=== PATIENT | male | born 1955 | race Caucasian/White ===

== ENCOUNTER 2021-01-21 07:08 | Inpatient (IN) | payer MEDICARE, SELFPAY ==
[~2021-01-21] VITALS: Ht 170.2 cm; Wt 71.0 kg
[2021-01-21] MEDS ORDERED: LORazepam 2 MG/ML, 1ML ONE (07:17)
[2021-01-21] MEDS ORDERED: ASPIRIN 81 MG TABLET CHEW ONE (07:21)
[2021-01-21] MEDS ORDERED: NITROGLYCERIN/D5W PMX 250 ML ONE (07:26)
[2021-01-21] MEDS ORDERED: SODIUM CHLORIDE FLUSH 10ML SYR IVF ONE (07:30)
[2021-01-21] MEDS ORDERED: LORazepam 2 MG/ML, 1ML IVPush ONE (07:30)
[2021-01-21] MEDS ORDERED: NITROGLYCERIN/D5W PMX 250 ML IV PRN ×2 (07:30→09:30)
[2021-01-21] MEDS ORDERED: ASPIRIN 81 MG TABLET CHEW PO ONE (07:30)
--- NOTE | 2021-01-21 07:38 | NUR ---
THIS IS A 65 YEAR OLD MALE WHO IN BY AMBULANCE DUE TO RESP DISTRESS. 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 PT PLACED ON NITRO GTT PER MD, START AT 100MC PER MD ORDER.
--- NOTE | 2021-01-21 07:45 | NUR ---
INCREASE TO 200CM/MIN NTG PER MD REQUEST
[2021-01-21 07:59] LABS: BASOPHILS % (AUTO) 1 % (0-1); EOSINOPHILS % (AUTO) 3 % (1-7); LYMPHOCYTES % (AUTO) 24 % (22-44); MEAN CORPUSCULAR HEMOGLOBIN 29.7 pg (27.5-34.5); MEAN CORPUSCULAR HGB CONC 32.8 g/dL (33.2-36.2); MEAN PLATELET VOLUME 9.9 fL (7.4-10.4); MONOCYTES % (AUTO) 4 % (2-9); NEUTROPHILS % (AUTO) 68 % (42-75); PLATELET COUNT 253 x10^3/uL (130-400); RED BLOOD COUNT 5.23 x10^6/uL (4.38-5.82); RED CELL DISTRIBUTION WIDTH 14.5 % (9.4-14.8)
[2021-01-21 08:04] LABS: ALBUMIN 3.9 g/dL (3.4-5.0); ANION GAP 12 mmol/L (5-15); CALCIUM 8.4 mg/dL (8.5-10.1); CHLORIDE 108 mmol/L (98-107); CREATININE 1.54 mg/dL (0.7-1.3)
[2021-01-21 08:05] LABS: MD NO
[2021-01-21] MEDS ORDERED: FUROSEMIDE 40 MG/4 ML ONE (08:12)
[2021-01-21 08:14] LABS: TROPONIN I 0.326 ng/mL (0.000-0.045)
--- NOTE | 2021-01-21 08:23 | NUR ---
MEDICATED PER MAR, PT RESTING WITH EYES CLOSED, DECREASE RESP DISTRESS NOTED.
[2021-01-21] MEDS ORDERED: FUROSEMIDE 20 MG/2 ML IV ONE (08:30)
--- NOTE | 2021-01-21 08:47 | NUR ---
DECREASE TO 100MC/MIN NTG PER MD REQUEST AT THIS TIME. EDMD AT BEDSIDE.
--- NOTE | 2021-01-21 08:54 | NUR ---
HOSPITALIST AT BEDSIDE AT THIS TIME.
--- NOTE | 2021-01-21 09:15 | NUR ---
report given to rio hawthorne. all questions answered.
[2021-01-21] MEDS ORDERED: MELATONIN 5 MG TABLET PO PRN (09:30)
[2021-01-21] MEDS ORDERED: LABETALOL 5MG/ML, 20ML IVPush PRN (09:30)
[2021-01-21] MEDS ORDERED: ONDANSETRON 2MG/ML, 2ML IVPush PRN (09:30)
[2021-01-21] MEDS ORDERED: MORPHINE SULFATE 4 MG/ML, 1ML IVPush PRN (09:30)
[2021-01-21] MEDS ORDERED: ACETAMINOPHEN 325 MG TABLET PO PRN (09:30)
[2021-01-21] MEDS ORDERED: hydrALAzine 20 MG/ML, 1ML IVPush PRN (09:30)
[2021-01-21] MEDS ORDERED: DOCUSATE 100 MG CAPSULE PO PRN (09:30)
--- NOTE | 2021-01-21 09:30 | NUR ---
PT TO CT WITH THIS RN AT THIS TIME.
[2021-01-21 09:53] LABS: INTERNATIONAL NORMALIZED RATIO 1.07 (0.93-1.1); PROTHROMBIN TIME 11.4 Seconds (9.6-11.5)
[2021-01-21] MEDS ORDERED: OMNIPAQUE 350 MG/ML, 100ML BOTTLE ONE (09:54)
[2021-01-21 09:56] LABS: ALANINE AMINOTRANSFERASE 45 U/L (12-78); ALBUMIN 3.8 g/dL (3.4-5.0); BILIRUBIN, DIRECT 0.2 mg/dL (0.1-0.2)
[2021-01-21 10:01] LABS: ALKALINE PHOSPHATASE 65 U/L (45-117); BILIRUBIN,INDIRECT 0.9 mg/dL (0.0-2.0); BILIRUBIN,TOTAL 1.1 mg/dL (0.2-1.0); FREE T4 (FREE THYROXINE) 1.21 ng/dL (0.76-1.46); TROPONIN I 0.809 ng/mL (0.000-0.045)
[2021-01-21 10:52] LABS: MICROSCOPIC NOT IND
[2021-01-21 10:58] LABS: CHLORIDE,URINE RANDOM 117 mmol/L; POTASSIUM,URINE RANDOM 14 mmol/L; SODIUM,URINE RANDOM 106 mmol/L
[2021-01-21] MEDS: INSULIN LISPRO 100 UNITS/ML, PEN SQ-INSULIN SCH ×2 (11:00→15:56)
[2021-01-21] MEDS: POTASSIUM CHLORIDE 20 MEQ TAB.ER.PRT PO SCH (15:48)
[2021-01-21] MEDS: HEPARIN 5,000 UNITS/ML, 1ML IV ONE ×2 (16:50→17:55)
[2021-01-21] MEDS: FUROSEMIDE 40 MG/4 ML IV SCH (16:55)
[2021-01-21] MEDS ORDERED: HEPARIN 5,000 UNITS/ML, 1ML IV PRN (17:00)
[2021-01-21] MEDS: CARVEDILOL 3.125 MG TABLET PO SCH (17:01)
[2021-01-21] MEDS: NICOTINE 14MG/24 HR PATCH.TD24 TD SCH (17:55)
[2021-01-21] MEDS: HEPARIN 25,000 UNITS/250ML PMX 250 ML IV PRN (18:01)
[2021-01-21 18:49] LABS: ANION GAP 6 mmol/L (5-15); CALCIUM 8.5 mg/dL (8.5-10.1); CHLORIDE 107 mmol/L (98-107); CREATININE 1.14 mg/dL (0.7-1.3)
[2021-01-21] MEDS ORDERED: FUROSEMIDE 40 MG/4 ML IV ONE (21:00)
[2021-01-21] MEDS: FAMOTIDINE 20 MG/2 ML IVPush SCH (21:30)
[2021-01-21] MEDS: ATORVASTATIN 40 MG TABLET PO SCH (22:07)
[2021-01-22] MEDS: CARVEDILOL 3.125 MG TABLET PO SCH ×2 (06:22→17:33)
[2021-01-22 06:26] LABS: ALANINE AMINOTRANSFERASE 43 U/L (12-78); ALBUMIN 3.7 g/dL (3.4-5.0); ANION GAP 8 mmol/L (5-15); CALCIUM 8.9 mg/dL (8.5-10.1); CHLORIDE 103 mmol/L (98-107); CHOLESTEROL, TOTAL 207 mg/dL (140-239); TRIGLYCERIDES 80 mg/dL (50-200); VLDL CHOLESTEROL 16 mg/dL (0-25)
[2021-01-22 06:28] LABS: MEAN CORPUSCULAR HEMOGLOBIN 29.7 pg (27.5-34.5); MEAN CORPUSCULAR HGB CONC 33.2 g/dL (33.2-36.2); MEAN PLATELET VOLUME 10.4 fL (7.4-10.4); PLATELET COUNT 216 x10^3/uL (130-400); RED CELL DISTRIBUTION WIDTH 14.6 % (9.4-14.8)
[2021-01-22 06:29] LABS: ALKALINE PHOSPHATASE 64 U/L (45-117); BILIRUBIN,TOTAL 1.8 mg/dL (0.2-1.0); CHOL/HDL RATIO 4.1; CREATININE 1.27 mg/dL (0.7-1.3); HDL CHOL % 24 % (26-37); HDL CHOLESTEROL (DIRECT) 50 mg/dL (40-60); LDL CHOLESTEROL,CALCULATED 141 mg/dL (54-169); LDL/HDL RATIO 2.8 (0.5-3.0); TOTAL PROTEIN 6.9 g/dL (6.4-8.2)
[2021-01-22 06:47] LABS: MD YES
[2021-01-22 06:48] LABS: BAND#(MANUAL) 0.17 x10^3/uL; BANDS%(MANUAL) 1 % (0-7); BASOS#(MANUAL) 0.17 x10^3/uL (0-0.1); BASOS% (MANUAL) 1 % (0-1); LYMPH#(MANUAL) 0.86 x10^3/uL (1-3.4); LYMPHS% (MANUAL) 5 % (22-44); MONOS#(MANUAL) 1.55 x10^3/uL (0.3-2.7); MONOS% (MANUAL) 9 % (2-9); SEG#(MANUAL) 14.45 x10^3/uL (1.8-6.8); SEGS% (MANUAL) 84 % (42-75)
[2021-01-22 06:49] LABS: <PLATELET ESTIMATE> ADEQUATE; <PLT MORPHOLOGY> NORMAL PLT MORPH; <RBC MORPHOLOGY> NORMAL
[2021-01-22] MEDS: FUROSEMIDE 40 MG/4 ML IV SCH ×2 (07:36→15:56)
[2021-01-22] MEDS ORDERED: LOSARTAN 25MG TABLET PO SCH (09:00)
[2021-01-22] MEDS: SPIRONOLACTONE 25 MG TABLET PO SCH (09:06)
[2021-01-22] MEDS: POTASSIUM CHLORIDE 20 MEQ TAB.ER.PRT PO SCH (09:07)
[2021-01-22] MEDS: TAMSULOSIN 0.4 MG CAP.ER.24H PO SCH (12:00)
[2021-01-22] MEDS ORDERED: VERAPAMIL 2.5 MG/ML, 2ML ONE (12:16)
[2021-01-22] MEDS ORDERED: FENTANYL PF 100 MCG/2ML ONE (12:16)
[2021-01-22] MEDS ORDERED: LIDOCAINE-MPF 1%, 5ML ONE (12:16)
[2021-01-22] MEDS ORDERED: BIVALIRUDIN 250 MG ONE (12:16)
[2021-01-22] MEDS ORDERED: TICAGRELOR 90 MG TABLET ONE (12:16)
[2021-01-22] MEDS ORDERED: MIDAZOLAM 1 MG/ML, 5ML ONE (12:16)
[2021-01-22] MEDS ORDERED: HEPARIN 1,000 UNITS/ML, 10ML ONE (12:17)
[2021-01-22] MEDS ORDERED: LIDOCAINE 2%, 20ML ONE (13:31)
[2021-01-22] MEDS: NICOTINE 14MG/24 HR PATCH.TD24 TD SCH (17:32)
[2021-01-22] MEDS: HEPARIN 25,000 UNITS/250ML PMX 250 ML IV PRN (17:50)
[2021-01-22 17:58] VITALS: BP 136/74
[2021-01-22] MEDS: ATORVASTATIN 40 MG TABLET PO SCH (21:07)
[2021-01-22] MEDS: LOSARTAN 25MG TABLET PO SCH (21:07)
[2021-01-22] MEDS: FAMOTIDINE 20 MG/2 ML IVPush SCH (21:07)
[2021-01-23] VITALS (8 sets, daily range): BP systolic 92–145; BP diastolic 54–87
[2021-01-23 05:03] LABS: BASOPHILS % (AUTO) 1 % (0-1); EOSINOPHILS % (AUTO) 1 % (1-7); LYMPHOCYTES % (AUTO) 12 % (22-44); MEAN CORPUSCULAR HEMOGLOBIN 29.3 pg (27.5-34.5); MEAN CORPUSCULAR HGB CONC 33.4 g/dL (33.2-36.2); MEAN PLATELET VOLUME 9.7 fL (7.4-10.4); MONOCYTES % (AUTO) 10 % (2-9); NEUTROPHILS % (AUTO) 77 % (42-75); PLATELET COUNT 226 x10^3/uL (130-400)
[2021-01-23 05:12] LABS: ANION GAP 7 mmol/L (5-15); CALCIUM 8.8 mg/dL (8.5-10.1); CHLORIDE 100 mmol/L (98-107); CREATININE 1.21 mg/dL (0.7-1.3)
[2021-01-23 05:15] LABS: MD NO
[2021-01-23] MEDS: CARVEDILOL 3.125 MG TABLET PO SCH ×2 (05:59→18:00)
[2021-01-23] MEDS: ASPIRIN 81 MG TABLET EC PO SCH (05:59)
[2021-01-23] MEDS: LOSARTAN 25MG TABLET PO SCH ×2 (09:00→21:42)
[2021-01-23] MEDS: BUMETANIDE 1 MG TABLET PO SCH (09:18)
[2021-01-23] MEDS: SPIRONOLACTONE 25 MG TABLET PO SCH (09:18)
[2021-01-23] MEDS: TAMSULOSIN 0.4 MG CAP.ER.24H PO SCH (09:18)
[2021-01-23] MEDS: NICOTINE 14MG/24 HR PATCH.TD24 TD SCH (17:52)
[2021-01-23] MEDS ORDERED: FAMOTIDINE 20 MG TABLET PO SCH (21:00)
[2021-01-23] MEDS: ATORVASTATIN 40 MG TABLET PO SCH (21:42)
[2021-01-24] VITALS (8 sets, daily range): BP systolic 86–112; BP diastolic 52–70
[2021-01-24] MEDS: HEPARIN 25,000 UNITS/250ML PMX 250 ML IV PRN (04:37)
[2021-01-24 04:45] LABS: BASOPHILS % (AUTO) 1 % (0-1); EOSINOPHILS % (AUTO) 3 % (1-7); LYMPHOCYTES % (AUTO) 17 % (22-44); MEAN CORPUSCULAR HEMOGLOBIN 29.6 pg (27.5-34.5); MEAN CORPUSCULAR HGB CONC 33.7 g/dL (33.2-36.2); MONOCYTES % (AUTO) 10 % (2-9); NEUTROPHILS % (AUTO) 70 % (42-75); PLATELET COUNT 192 x10^3/uL (130-400); RED BLOOD COUNT 5.01 x10^6/uL (4.38-5.82); RED CELL DISTRIBUTION WIDTH 14.2 % (9.4-14.8)
[2021-01-24 04:47] LABS: MD NO
[2021-01-24 04:48] LABS: ANION GAP 7 mmol/L (5-15); CALCIUM 8.3 mg/dL (8.5-10.1); CHLORIDE 100 mmol/L (98-107); CREATININE 0.99 mg/dL (0.7-1.3)
[2021-01-24] MEDS: ASPIRIN 81 MG TABLET EC PO SCH (06:05)
[2021-01-24] MEDS: CARVEDILOL 3.125 MG TABLET PO SCH ×2 (06:05→17:21)
[2021-01-24] MEDS: TAMSULOSIN 0.4 MG CAP.ER.24H PO SCH (08:18)
[2021-01-24] MEDS: LOSARTAN 25MG TABLET PO SCH (08:18)
[2021-01-24] MEDS: BUMETANIDE 1 MG TABLET PO SCH (08:18)
[2021-01-24] MEDS: SPIRONOLACTONE 25 MG TABLET PO SCH (08:19)
[2021-01-24] MEDS: POTASSIUM CHLORIDE 20 MEQ TAB.ER.PRT PO SCH ×2 (08:19→17:19)
[2021-01-24] MEDS ORDERED: CLOPIDOGREL 300 MG TABLET PO ONE (09:00)
[2021-01-24] MEDS: NICOTINE 14MG/24 HR PATCH.TD24 TD SCH (17:19)
[2021-01-24] MEDS ORDERED: CARVEDILOL 3.125 MG TABLET PO SCH (18:00)
[2021-01-24] MEDS ORDERED: ATORVASTATIN 40 MG TABLET PO SCH (21:00)
[2021-01-25 00:27] VITALS: BP 100/62
[2021-01-25 05:08] VITALS: BP 103/64
[2021-01-25] MEDS: CARVEDILOL 3.125 MG TABLET PO SCH (05:10)
[2021-01-25] MEDS: ASPIRIN 81 MG TABLET EC PO SCH (05:11)
[2021-01-25 06:45] VITALS: BP 111/69
[2021-01-25] MEDS: BUMETANIDE 1 MG TABLET PO SCH (08:20)
[2021-01-25] MEDS: SPIRONOLACTONE 25 MG TABLET PO SCH (08:20)
[2021-01-25] MEDS ORDERED: LOSA25TA25 PO (08:39)
[2021-01-25] MEDS ORDERED: TAMS-11 PO (08:39)
[2021-01-25] MEDS ORDERED: BUME1TAB21 PO (08:39)
[2021-01-25] MEDS ORDERED: SPIR25TA PO (08:39)
[2021-01-25] MEDS ORDERED: CLOP75TA PO (08:39)
[2021-01-25] MEDS ORDERED: ATOR40TA78 PO (08:39)
[2021-01-25] MEDS ORDERED: ASPI81TA45 PO (08:39)
[2021-01-25] MEDS ORDERED: CARV3.1212 PO (08:39)
[2021-01-25] MEDS ORDERED: LOSARTAN 25MG TABLET PO SCH (09:00)
[2021-01-25] MEDS ORDERED: CLOPIDOGREL 75 MG TABLET PO SCH (09:00)
[2021-01-25] MEDS ORDERED: TAMSULOSIN 0.4 MG CAP.ER.24H PO SCH (21:00)
== END 2021-01-25 10:30 | disposition home or self-care (01) | DRG 280 ==
LOC: ED 08:59 → EDIP 09:19 → CCU 09:55 → 5SO 01-22 17:53 → DCLOUNGE 01-25 10:22
PROVIDERS: ADMIT Hospitalist; ATTEND Internal Medicine
PROC: 5A09357 Assistance with Respiratory Ventilation, Less than 24 Consecutive Hours, Continuous Positive Airway Pressure (ICD-10-PCS; 2021-01-21)
PROC: 4A023N7 Measurement of Cardiac Sampling and Pressure, Left Heart, Percutaneous Approach (ICD-10-PCS; principal; 2021-01-22)
PROC: B2111ZZ Fluoroscopy of Multiple Coronary Arteries using Low Osmolar Contrast (ICD-10-PCS; 2021-01-22)
PROC: 5A09357 Assistance with Respiratory Ventilation, Less than 24 Consecutive Hours, Continuous Positive Airway Pressure (ICD-10-PCS; 2021-01-22)
DX: I13.0 Hypertensive heart and chronic kidney disease with heart failure and stage 1 through stage 4 chronic kidney disease, or unspecified chronic kidney disease (principal); J96.01 Acute respiratory failure with hypoxia; I21.A1 Myocardial infarction type 2; I50.43 Acute on chronic combined systolic (congestive) and diastolic (congestive) heart failure; E87.2 Acidosis; I16.1 Hypertensive emergency; N17.9 Acute kidney failure, unspecified; I43 Cardiomyopathy in diseases classified elsewhere; E78.5 Hyperlipidemia, unspecified; F17.210 Nicotine dependence, cigarettes, uncomplicated; D72.829 Elevated white blood cell count, unspecified; I25.10 Atherosclerotic heart disease of native coronary artery without angina pectoris; I27.20 Pulmonary hypertension, unspecified; N18.9 Chronic kidney disease, unspecified; I25.82 Chronic total occlusion of coronary artery; Z20.822 Contact with and (suspected) exposure to COVID-19; R33.9 Retention of urine, unspecified; R73.9 Hyperglycemia, unspecified; I08.0 Rheumatic disorders of both mitral and aortic valves; Z80.1 Family history of malignant neoplasm of trachea, bronchus and lung; Z80.3 Family history of malignant neoplasm of breast
CPT/HCPCS: 36415; 36600; 71045; 74177; 80048; 80053; 80061; 80076; 81003; 82040; 82436; 82570; 82803; 82962; 83036; 83605; 83690; 83735; 83880; 84100; 84133; 84300; 84439; 84443; 84484; 85025; 85520; 85610; 87081; 87635; 93005; 93458; 94660; 96374; 96375; 99156; 99291; 99292; C1760; C1769; C1894; C8929; G0378; J0583; J1644; J1940; J2250; J3010; Q9957; Q9967; J2060; J2270